=== PATIENT | female | born 1990 | race Caucasian/White ===

== ENCOUNTER 2018-02-02 20:15 | Emergency (ER) | payer MEDICAID ==
[2018-02-02] MEDS: ACETAMINOPHEN 500 MG TAB PO (21:34)
[2018-02-02 21:42] LABS: ADD MAN DIFF? NO
[2018-02-02 21:43] LABS: BASOPHIL # 0.1 10^3/ul (0.0-0.1); BASOPHILS % 0.8 % (0.0-2.0); EOSINOPHILS # 0.3 10^3/ul (0.0-0.5); EOSINOPHILS % 3.6 % (0.0-7.0); HEMATOCRIT 38.6 % (37.0-47.0); HEMOGLOBIN 13.2 g/dl (12.0-16.0); LYMPHOCYTES # 2.3 10^3/ul (0.8-2.9); LYMPHOCYTES % 29.1 % (15.0-51.0); MEAN CORPUSCULAR HEMOGLOBIN 30.1 pg (29.0-33.0); MEAN CORPUSCULAR HGB CONC 34.2 g/dl (32.0-37.0); MEAN CORPUSCULAR VOLUME 88.1 fl (82.0-101.0); MEAN PLATELET VOLUME 9.1 fl (7.4-10.4); MONOCYTE # 0.9 10^3/ul (0.3-0.9); MONOCYTES % 10.9 % (0.0-11.0); NEUTROPHIL # 4.3 10^3/ul (1.6-7.5); NEUTROPHILS % 55.3 % (39.0-77.0); PLATELET COUNT 292 10^3/UL (140-415); RED BLOOD COUNT 4.38 10^6/ul (4.20-5.40); RED CELL DISTRIBUTION WIDTH 12.5 % (11.5-14.5)
[2018-02-02 21:43] LABS: WHITE BLOOD COUNT 7.8 10^3/ul (4.8-10.8)
[2018-02-02 21:57] LABS: ADD UMIC YES; UR ASCORBIC ACID 40 mg/dL (NEGATIVE); UR BACTERIA FEW /HPF (NONE SEEN); UR BILIRUBIN (Dip) NEGATIVE (NEGATIVE); UR BLOOD (Dip) 1+ mg/dL (NEGATIVE); UR CLARITY CLOUDY (CLEAR); UR COLOR YELLOW (YELLOW); UR GLUCOSE (Dip) NEGATIVE (NEGATIVE); UR KETONES (Dip) TRACE mg/dL (NEGATIVE); UR LEUKOCYTE ESTERASE (Dip) 3+ Leu/ul (NEGATIVE); UR MUCUS MODERATE /HPF (NONE SEEN); UR NITRITE (Dip) NEGATIVE (NEGATIVE); UR RBC 22 /HPF (0-5); UR SPECIFIC GRAVITY (Dip) 1.033 (1.003-1.030); UR SQUAMOUS EPITHELIAL CELL FEW /HPF (FEW); UR TOTAL PROTEIN (Dip) 1+ mg/dl (NEGATIVE); UR UROBILINOGEN (Dip) NEGATIVE (NEGATIVE); UR WBC 40 /HPF (0-5)
[2018-02-02] MEDS: CEFTRIAXONE 1 GM INJ IM (23:49)
[2018-02-02] MEDS: LIDOCAINE 1% (MPF) 5 ML VIAL INJ (23:50)
[2018-02-02] MEDS: LIDOCAINE 1% (MDV) 10 ML INJ INJ (23:51)
== END 2018-02-03 00:05 | disposition home or self-care (01) ==
LOC: FTE 02-03 00:05
DX: O99.511 Diseases of the respiratory system complicating pregnancy, first trimester (principal); O23.41 Unspecified infection of urinary tract in pregnancy, first trimester; J06.9 Acute upper respiratory infection, unspecified; R10.2 Pelvic and perineal pain; Z3A.01 Less than 8 weeks gestation of pregnancy
CPT/HCPCS: 36415; 76801; 81001; 84702; 85025; 86900; 86901; 87086; 87400; 96372; 99285-25

== ENCOUNTER 2018-09-10 23:20 | Outpatient (CLI) | payer MEDICAID | END 2018-09-11 01:18 | disposition left against medical advice (07) | LOC: OBT 23:20 → L-D 23:20 → OBT 09-11 01:18 | DX: O36.8330 Maternal care for abnormalities of the fetal heart rate or rhythm, third trimester, not applicable or unspecified (principal); Z3A.39 39 weeks gestation of pregnancy | CPT/HCPCS: 76815; 76818 ==

== ENCOUNTER 2018-09-11 08:57 | Inpatient (IN) | payer MEDICAID ==
[2018-09-11] MEDS ORDERED: CARBOPROST 250 MCG INJ IM ×2 (10:00→22:00)
[2018-09-11] MEDS ORDERED: OXYTOCIN 30 UNITS/LR 500 ML IV ×2 (10:00→22:00)
[2018-09-11] MEDS ORDERED: METHYLERGONOVINE 0.2 MG INJ IM ×2 (10:00→22:00)
[2018-09-11] MEDS ORDERED: CEFAZOLIN 2 GM/50 ML (PMX) 50 ML IVPB (10:00)
[2018-09-11] MEDS: LACTATED RINGER'S 1,000 ML IV ×2 (10:10→12:37)
[2018-09-11 10:28] LABS: ADD MAN DIFF? NO
[2018-09-11 10:39] LABS: WHITE BLOOD COUNT 6.9 10^3/ul (4.8-10.8)
[2018-09-11 10:39] LABS: BASOPHILS % 0.6 % (0.0-2.0); EOSINOPHILS # 0.2 10^3/ul (0.0-0.5); EOSINOPHILS % 2.8 % (0.0-7.0); HEMATOCRIT 35.5 % (37.0-47.0); HEMOGLOBIN 11.8 g/dl (12.0-16.0); LYMPHOCYTES # 1.5 10^3/ul (0.8-2.9); LYMPHOCYTES % 21.5 % (15.0-51.0); MEAN CORPUSCULAR HEMOGLOBIN 28.6 pg (29.0-33.0); MEAN CORPUSCULAR HGB CONC 33.2 g/dl (32.0-37.0); MEAN CORPUSCULAR VOLUME 86.2 fl (82.0-101.0); MEAN PLATELET VOLUME 10.2 fl (7.4-10.4); MONOCYTE # 0.5 10^3/ul (0.3-0.9); MONOCYTES % 7.1 % (0.0-11.0); NEUTROPHIL # 4.6 10^3/ul (1.6-7.5); NEUTROPHILS % 67.1 % (39.0-77.0); PLATELET COUNT 246 10^3/UL (140-415); RED BLOOD COUNT 4.12 10^6/ul (4.20-5.40); RED CELL DISTRIBUTION WIDTH 13.8 % (11.5-14.5)
[2018-09-11 11:00] LABS: INR 0.96; PROTIME 12.9 Sec (11.9-14.9)
[2018-09-11 11:01] LABS: PARTIAL THROMBOPLASTIN TIME 26.4 Sec (23.0-35.0)
[2018-09-11 13:40] LABS: HEPATITIS B SURFACE ANTIGEN NEGATIVE (NEGATIVE)
[2018-09-11 15:15] LABS: RAPID PLASMA REAGIN NONREACTIVE (NR)
[2018-09-11] MEDS ORDERED: CITRIC ACID/NA CITRATE 30 ML CUP (15:30)
[2018-09-11] MEDS ORDERED: ONDANSETRON 4 MG INJ (15:31)
[2018-09-11] MEDS: ONDANSETRON 4 MG INJ IV (16:51)
[2018-09-11] MEDS: CITRIC ACID/NA CITRATE 30 ML CUP PO (16:51)
[2018-09-11] MEDS ORDERED: morphine SULFATE/PF (10 MG/10 ML) INJ (17:05)
[2018-09-11] MEDS ORDERED: METOCLOPRAMIDE 10 MG INJ (17:05)
[2018-09-11] MEDS ORDERED: OXYTOCIN 10 UNIT INJ (17:06)
[2018-09-11] MEDS: MISOPROSTOL 200 MCG TAB PR (18:50)
[2018-09-11] MEDS: OXYTOCIN 30 UNITS/LR 500 ML IV ×2 (19:08→23:57)
[2018-09-11] MEDS ORDERED: NALOXONE (0.4 MG/ML) INJ IV (21:00)
[2018-09-11] MEDS ORDERED: NALBUPHINE HCL (10 MG/1 ML) INJ IV (21:00)
[2018-09-11] MEDS ORDERED: ALBUTEROL 0.083% (NEB) 2.5 MG/3 ML AMP HHN (21:00)
[2018-09-11] MEDS ORDERED: LABETALOL HCL 20MG INJ IV (21:00)
[2018-09-11] MEDS ORDERED: ONDANSETRON 4 MG INJ IV ×2 (21:00)
[2018-09-11] MEDS ORDERED: FENTAnyl 50 MCG/ML VIAL IV ×3 (21:00)
[2018-09-11] MEDS ORDERED: MEPERIDINE 25 MG INJ IV (21:00)
[2018-09-11] MEDS ORDERED: IPRATROPIUM (NEB) 0.5 MG/2.5 ML AMP HHN (21:00)
[2018-09-11] MEDS ORDERED: MIDAZOLAM 1 MG/ML 2 ML INJ IV (21:00)
[2018-09-11] MEDS ORDERED: HYDROmorphONE 1 MG/5 ML IV SYRINGE IV ×3 (21:00)
[2018-09-11] MEDS ORDERED: OXYCODONE/ACETAMINOPHEN (5/325) TAB PO ×2 (21:00)
[2018-09-11] MEDS ORDERED: TRIMETHOBENZAMIDE 100 MG/ML VIAL IM ×2 (21:00)
[2018-09-11] MEDS ORDERED: morphine 2 MG INJ IV ×2 (21:00)
[2018-09-11] MEDS ORDERED: hydrALAzine 20 MG INJ IV (21:00)
[2018-09-11] MEDS ORDERED: EPHEDrine 25 MG/5 ML SYG IV (21:00)
[2018-09-11] MEDS ORDERED: DIPHENHYDRAMINE 50 MG INJ IV ×2 (21:00)
[2018-09-11] MEDS ORDERED: METHYLERGONOVINE 0.2 MG TAB PO (22:00)
[2018-09-11] MEDS ORDERED: MISOPROSTOL 200 MCG TAB PR (22:00)
[2018-09-12] MEDS: DEXTROSE 5%-LR 1,000 ML IV ×3 (05:35→13:35)
[2018-09-12 08:16] LABS: ADD MAN DIFF? NO
[2018-09-12 08:28] LABS: WHITE BLOOD COUNT 8.1 10^3/ul (4.8-10.8)
[2018-09-12 08:28] LABS: BASOPHILS % 0.5 % (0.0-2.0); EOSINOPHILS # 0.1 10^3/ul (0.0-0.5); EOSINOPHILS % 1.5 % (0.0-7.0); HEMATOCRIT 29.9 % (37.0-47.0); HEMOGLOBIN 10.1 g/dl (12.0-16.0); LYMPHOCYTES # 1.5 10^3/ul (0.8-2.9); LYMPHOCYTES % 18.3 % (15.0-51.0); MEAN CORPUSCULAR HGB CONC 33.8 g/dl (32.0-37.0); MEAN CORPUSCULAR VOLUME 85.9 fl (82.0-101.0); MEAN PLATELET VOLUME 10.4 fl (7.4-10.4); MONOCYTE # 0.8 10^3/ul (0.3-0.9); MONOCYTES % 9.4 % (0.0-11.0); NEUTROPHIL # 5.7 10^3/ul (1.6-7.5); NEUTROPHILS % 69.9 % (39.0-77.0); PLATELET COUNT 228 10^3/UL (140-415); RED BLOOD COUNT 3.48 10^6/ul (4.20-5.40); RED CELL DISTRIBUTION WIDTH 13.9 % (11.5-14.5)
[2018-09-12] MEDS: SENNA/DOCUSATE NA (8.6MG/50MG) TAB PO ×2 (09:59→21:00)
[2018-09-12] MEDS ORDERED: DIPHTH/TET/ACEL PERTUSS (ADULT) 0.5 ML VIAL IM* (11:00)
[2018-09-12] MEDS: KETOROLAC 30 MG INJ IV (12:25)
[2018-09-12] MEDS: IBUPROFEN 800 MG TAB PO (18:36)
[2018-09-12] MEDS: HYDROCODONE/APAP (5/325) TAB PO ×2 (18:36→23:15)
[2018-09-12] MEDS: MAGNESIUM HYDROXIDE 30ML CUP PO (23:15)
[2018-09-13] MEDS: IBUPROFEN 800 MG TAB PO ×3 (04:11→18:12)
[2018-09-13] MEDS: HYDROCODONE/APAP (5/325) TAB PO ×4 (04:13→23:56)
[2018-09-13] MEDS: DEXTROSE 5%-LR 1,000 ML IV ×4 (04:14→23:56)
[2018-09-13] MEDS: SENNA/DOCUSATE NA (8.6MG/50MG) TAB PO ×2 (10:33→23:31)
[2018-09-13] MEDS: LANOLIN HPA 1 PKT TOP (12:47)
[2018-09-13] MEDS: MAGNESIUM HYDROXIDE 30ML CUP PO (16:34)
[2018-09-14] MEDS: IBUPROFEN 800 MG TAB PO ×2 (02:04→05:36)
[2018-09-14] MEDS: DEXTROSE 5%-LR 1,000 ML IV (05:35)
[2018-09-14] MEDS: HYDROCODONE/APAP (5/325) TAB PO (05:37)
[2018-09-14] MEDS: MEASLES,MUMPS,RUBELLA VACCINE INJ SC* (09:00)
[2018-09-14] MEDS: MAGNESIUM HYDROXIDE 30ML CUP PO (09:15)
[2018-09-14] MEDS: SENNA/DOCUSATE NA (8.6MG/50MG) TAB PO (09:16)
[2018-09-14] MEDS: DIPHTH/TET/ACEL PERTUSS (ADULT) 0.5 ML VIAL IM* (09:17)
== END 2018-09-14 14:30 | disposition home or self-care (01) | DRG 788 ==
LOC: L-D 08:57 → PP1 21:43
PROVIDERS: Obstetrics & Gynecology
PROC: 10D00Z1 Extraction of Products of Conception, Low, Open Approach (ICD-10-PCS; principal; 2018-09-11 10:00)
DX: O36.63X0 Maternal care for excessive fetal growth, third trimester, not applicable or unspecified (principal); O75.82 Onset (spontaneous) of labor after 37 completed weeks of gestation but before 39 completed weeks gestation, with delivery by (planned) cesarean section; Z3A.39 39 weeks gestation of pregnancy; Z37.0 Single live birth
CPT/HCPCS: 85025; 85610; 85730; 86592; 86850; 86900; 86901; 87340; 90715; 99464